=== PATIENT | male | born 1975 | race Caucasian/White ===

== ENCOUNTER 2022-02-07 13:12 | Inpatient (IN) | payer OTHER ==
[~2022-02-07] VITALS: Ht 180.3 cm; Wt 88.5 kg
[~2022-02-07 13:12] MED LIST: FLEXERIL 10 MG10 MG PO; MEDROL4 MG PO
[2022-02-07 15:17] LABS: HEMOGLOBIN 15.1 gm/dl (14.0-17.5); RED BLOOD COUNT 5.05 M/UL (4.20-5.50); WHITE BLOOD COUNT 11.4 K/UL (4.5-11.0)
[2022-02-07 15:46] LABS: BUN/CREATININE RATIO 16 (0-10)
[2022-02-08 06:29] LABS: HEMOGLOBIN 14.2 gm/dl (14.0-17.5); RED BLOOD COUNT 4.84 M/UL (4.20-5.50); WHITE BLOOD COUNT 12.5 K/UL (4.5-11.0)
[2022-02-08 06:45] LABS: BUN/CREATININE RATIO 20 (0-10)
[2022-02-09 04:35] LABS: HEMOGLOBIN 12.8 gm/dl (14.0-17.5)
[2022-02-09 04:41] LABS: BUN/CREATININE RATIO 19 (0-10)
[2022-02-09 05:00] LABS: RED BLOOD COUNT 4.35 M/UL (4.20-5.50); WHITE BLOOD COUNT 19.3 K/UL (4.5-11.0)
[2022-02-10 03:30] LABS: RED BLOOD COUNT 4.48 M/UL (4.20-5.50)
[2022-02-10 03:42] LABS: WHITE BLOOD COUNT 12.9 K/UL (4.5-11.0)
[2022-02-10 04:16] LABS: BUN/CREATININE RATIO 20 (0-10)
[2022-02-10] MEDS ORDERED: ACIDOPHILUS1 EACH PO (11:14)
[2022-02-10] MEDS ORDERED: LEVOFLOXACIN750 MG PO (11:14)
[2022-02-10] MEDS ORDERED: CLEOCIN HCL300 MG PO (11:14)
[2022-02-10] MEDS ORDERED: PERCOCET 5/325 T1 EA PO (11:16)
== END 2022-02-10 14:27 | disposition home health service (06) | DRG 908 ==
LOC: ER1 13:12 → M/S 15:43 → CDU 15:43 → M/S 20:22
PROVIDERS: Family Medicine; Internal Medicine; Physician Assistant; Podiatrist Foot & Ankle Surgery; ADMIT Internal Medicine
PROC: 0JQQ0ZZ Repair Right Foot Subcutaneous Tissue and Fascia, Open Approach (ICD-10-PCS; 2022-02-07)
PROC: 0HDRXZZ Extraction of Toe Nail, External Approach (ICD-10-PCS; 2022-02-07)
PROC: 0Y6R0Z1 Detachment at Right 2nd Toe, High, Open Approach (ICD-10-PCS; principal; 2022-02-07 18:43)
PROC: 0YQP0ZZ Repair Right 1st Toe, Open Approach (ICD-10-PCS; 2022-02-07 18:43)
DX: S99.20 Unspecified physeal fracture of phalanx of toe (principal); I96 Gangrene, not elsewhere classified; S91.219A Laceration without foreign body of unspecified toe(s) with damage to nail, initial encounter; F17.210 Nicotine dependence, cigarettes, uncomplicated; Z20.822 Contact with and (suspected) exposure to COVID-19; G89.29 Other chronic pain; X58.XXXA Exposure to other specified factors, initial encounter; S91.209A Unspecified open wound of unspecified toe(s) with damage to nail, initial encounter; Z88.0 Allergy status to penicillin; Z98.890 Other specified postprocedural states; Z82.49 Family history of ischemic heart disease and other diseases of the circulatory system
CPT/HCPCS: 36415; 73630; 80048; 82962; 85025; 85027; 90715; 93005; 96374; 96375; 97116; 97162; 99284; J0690; J1100; J1170; J1650; J1956; J2001; J2250; J2270; J2405; J2704; J2795; J3010; J3370; J7030; J7120